=== PATIENT | male | born 1935 | race Caucasian/White ===

== ENCOUNTER 2017-06-07 13:13 | Inpatient (IN) ==
[2017-06-07 13:56] LABS: Basophils % 0.5 % (0.0-0.8); Eosinophils # 0.3 10*3/uL (0.0-0.87); Hematocrit 30.1 VOL% (42.0-52.0); Hemoglobin 9.8 GM/DL (14.0-18.0); Immature Granulocytes % 0.3 %; Immature Granulocytes Absolute 0.02 #; Lymphocytes # 1.3 10*3/uL (1.4-4.0); Lymphocytes % 19.8 % (21.2-54.2); Mean Corpuscular HGB Conc 32.6 GM/DL (32-36); Mean Corpuscular Hemoglobin 29 PG (27-34); Mean Corpuscular Volume 90.1 FL (87-102); Mean Platelet Volume 10.7 FL (9.6-12.0); Monocytes # 0.7 10*3/uL (0.11-0.8); Monocytes % 10.8 % (1.7-12.7); Neutrophils # 4.1 10*3/uL (1.4-7.4); Neutrophils % 64.6 % (38.7-73.9); Platelet Count 216 T/CUMM (130-400); Red Blood Count 3.34 MC/CUMM (3.8-5.5); Red Cell Distribution Width 15.7 % (9.3-17.3); White Blood Count 6.3 T/CUMM (4-12)
[2017-06-07 14:04] LABS: Partial Thromboplastin Time 26.4 SECS (0-40)
[2017-06-07 14:35] LABS: Albumin 3.9 G/DL (3.4-5.0); Bilirubin,Total 0.5 MG/DL (0.2-1.0); Osmolality,Calculated 302.7 MOS/KG (273-304); Potassium 3.7 MMOL/L (3.5-5.1); Total Protein 7.8 G/DL (6.4-8.3)
[2017-06-07 14:36] LABS: Troponin I Only 0.214 NG/ML (0.00-0.045)
[2017-06-07] MEDS ORDERED: ONDANSETRON 4 MG/2 ML VIAL IV PRN (15:43)
[2017-06-07] MEDS ORDERED: DOCUSATE SODIUM 100 MG CAPSULE PO PRN (15:43)
[2017-06-07] MEDS ORDERED: diphenhydrAMINE CAP 25 MG CAPSULE PO PRN (15:43)
[2017-06-07] MEDS ORDERED: guaiFENesin/DM ER 600-30 MG TABLET PO PRN (15:43)
[2017-06-07] MEDS ORDERED: ALBUTEROL 2.5 MG/3 ML NEB RESP TX PRN (15:49)
[2017-06-07] MEDS ORDERED: FUROSEMIDE 40 MG/4 ML VIAL ONE (16:29)
[2017-06-07] MEDS ORDERED: amLODIPine 10 MG TABLET ONE (16:29)
[2017-06-07] MEDS ORDERED: PANTOPRAZOLE 40 MG TABLET PO ONE (16:30)
[2017-06-07] MEDS ORDERED: cefTRIAXone 1,000 MG VIAL ONE (16:30)
[2017-06-07] MEDS ORDERED: methylPREDNISolone SOD SUC 40 MG/1 ML VIAL ONE (16:30)
[2017-06-07] MEDS: amLODIPine 10 MG TABLET PO SCH (16:35)
[2017-06-07] MEDS: PANTOPRAZOLE 40 MG TABLET PO SCH (16:35)
[2017-06-07] MEDS: FUROSEMIDE 40 MG/4 ML VIAL IV SCH (16:36)
[2017-06-07] MEDS: methylPREDNISolone SOD SUC 40 MG/1 ML VIAL IV SCH (16:39)
[2017-06-07] MEDS: SIMVASTATIN 20 MG TABLET PO SCH (17:06)
[2017-06-07] MEDS: cefTRIAXone 1,000 MG in SYRINGE 1 EACH IV SCH (17:07)
[2017-06-07] MEDS ORDERED: DEXTROSE 50% 25 GM/50 ML VIAL IV PRN (18:05)
[2017-06-07] MEDS ORDERED: GLUCAGON 1 MG VIAL IM PRN (18:05)
[2017-06-07] MEDS: ALBUTEROL/IPRATROPIUM 3 ML NEB RESP TX SCH (19:14)
[2017-06-07] MEDS: INSULIN LISPRO 100 UNIT/ML SUBCUT SCH (20:12)
[2017-06-07] MEDS: CARVEDILOL 12.5 MG TABLET PO SCH (21:26)
[2017-06-07] MEDS: ENOXAPARIN 30 MG/0.3 ML SYRINGE SUBCUT SCH (21:26)
[2017-06-07] MEDS: BUDESONIDE/FORMOTEROL 160-4.5 INHALER 6 GM INH SCH (21:29)
[2017-06-07 22:52] LABS: Troponin I Only 0.242 NG/ML (0.00-0.045)
[2017-06-07] MEDS: ACETAMINOPHEN 325 MG TABLET PO PRN (23:43)
[2017-06-08] MEDS: ALBUTEROL/IPRATROPIUM 3 ML NEB RESP TX SCH ×4 (00:32→20:45)
[2017-06-08 01:10] LABS: Basophils % 0.3 % (0.0-0.8); Eosinophils % 0.3 % (0.00-10.9); Hematocrit 27.4 VOL% (42.0-52.0); Immature Granulocytes % 1.4 %; Immature Granulocytes Absolute 0.05 #; Lymphocytes # 0.4 10*3/uL (1.4-4.0); Mean Corpuscular HGB Conc 32.8 GM/DL (32-36); Mean Corpuscular Hemoglobin 29 PG (27-34); Mean Corpuscular Volume 89.3 FL (87-102); Mean Platelet Volume 10.8 FL (9.6-12.0); Monocytes # 0.1 10*3/uL (0.11-0.8); Monocytes % 1.9 % (1.7-12.7); Neutrophils # 3.2 10*3/uL (1.4-7.4); Neutrophils % 86.1 % (38.7-73.9); Platelet Count 177 T/CUMM (130-400); Red Blood Count 3.07 MC/CUMM (3.8-5.5); Red Cell Distribution Width 15.4 % (9.3-17.3); White Blood Count 3.7 T/CUMM (4-12)
[2017-06-08 01:40] LABS: Albumin 3.6 G/DL (3.4-5.0); Bilirubin,Total 0.4 MG/DL (0.2-1.0); Calcium 8.7 MG/DL (8.5-10.1); Osmolality,Calculated 305.8 MOS/KG (273-304); Potassium 3.5 MMOL/L (3.5-5.1); Risk Ratio 3.14; Total Protein 6.9 G/DL (6.4-8.3); VLDL CHOLESTEROL 20.2 MG/DL
[2017-06-08] MEDS: FUROSEMIDE 40 MG/4 ML VIAL IV SCH ×3 (04:07→20:15)
[2017-06-08] MEDS: methylPREDNISolone SOD SUC 40 MG/1 ML VIAL IV SCH ×2 (04:15→17:20)
[2017-06-08] MEDS: ACETAMINOPHEN 325 MG TABLET PO PRN (04:24)
[2017-06-08] MEDS: amLODIPine 10 MG TABLET PO SCH (09:23)
[2017-06-08] MEDS: INSULIN LISPRO 100 UNIT/ML SUBCUT SCH ×2 (09:24→17:21)
[2017-06-08] MEDS: ASPIRIN EC 81 MG TABLET PO SCH (09:24)
[2017-06-08] MEDS: PANTOPRAZOLE 40 MG TABLET PO SCH (09:24)
[2017-06-08] MEDS: CARVEDILOL 12.5 MG TABLET PO SCH ×2 (09:24→22:09)
[2017-06-08] MEDS: SIMVASTATIN 20 MG TABLET PO SCH (09:24)
[2017-06-08] MEDS: BUDESONIDE/FORMOTEROL 160-4.5 INHALER 6 GM INH SCH ×2 (09:28→22:10)
[2017-06-08] MEDS: cefTRIAXone 1,000 MG in SYRINGE 1 EACH IV SCH (17:21)
[2017-06-08] MEDS: ENOXAPARIN 30 MG/0.3 ML SYRINGE SUBCUT SCH (22:09)
[2017-06-08] MEDS ORDERED: hydrALAZINE 20 MG/1 ML VIAL IV PRN (23:37)
[2017-06-09] MEDS: ACETAMINOPHEN 325 MG TABLET PO PRN ×2 (00:05→21:54)
[2017-06-09 01:20] LABS: Hematocrit 26.8 VOL% (42.0-52.0); Hemoglobin 8.8 GM/DL (14.0-18.0); Immature Granulocytes % 0.8 %; Immature Granulocytes Absolute 0.06 #; Lymphocytes # 0.5 10*3/uL (1.4-4.0); Lymphocytes % 5.9 % (21.2-54.2); Mean Corpuscular HGB Conc 32.8 GM/DL (32-36); Mean Corpuscular Hemoglobin 29 PG (27-34); Mean Corpuscular Volume 89.3 FL (87-102); Mean Platelet Volume 11.1 FL (9.6-12.0); Monocytes # 0.2 10*3/uL (0.11-0.8); Monocytes % 2.7 % (1.7-12.7); Neutrophils % 90.6 % (38.7-73.9); Platelet Count 203 T/CUMM (130-400); Red Cell Distribution Width 15.6 % (9.3-17.3); White Blood Count 7.8 T/CUMM (4-12)
[2017-06-09 01:59] LABS: Apearance,Urine CLEAR (Clear); Bilirubin,Urine Negative (Negative); Blood, Urine Negative (Negative); Glucose,Urine (UA) 50 mg/dL (Negative); Ketones,Urine Negative (Negative); Mucus,Urine Occasional /LPF (Occasional); Nitrite,Urine Negative (Negative); Protein,Urine Negative; Urine Color Straw (Yellow); Urine Specific Gravity 1.006 (1.001-1.035); Urine Urobilinogen < 2.0 EU/DL (0.2-1.0); WBC,Urine 1 /HPF (0-6)
[2017-06-09 02:00] LABS: Calcium 8.6 MG/DL (8.5-10.1); Potassium 3.4 MMOL/L (3.5-5.1)
[2017-06-09] MEDS: ALBUTEROL/IPRATROPIUM 3 ML NEB RESP TX SCH ×4 (02:02→19:45)
[2017-06-09 02:11] LABS: Band Neutrophils 3 % (0-10); Lymphocytes 8 % (20-55); Platelet Estimate Normal; Segmented Neutrophils 89 % (50-85); Total Cells Counted 100
[2017-06-09] MEDS: methylPREDNISolone SOD SUC 40 MG/1 ML VIAL IV SCH ×2 (05:13→17:06)
[2017-06-09] MEDS: FUROSEMIDE 40 MG/4 ML VIAL IV SCH ×2 (05:13→21:50)
[2017-06-09] MEDS: ASPIRIN EC 81 MG TABLET PO SCH (08:37)
[2017-06-09] MEDS: amLODIPine 10 MG TABLET PO SCH (08:38)
[2017-06-09] MEDS: SIMVASTATIN 20 MG TABLET PO SCH (08:38)
[2017-06-09] MEDS: CARVEDILOL 12.5 MG TABLET PO SCH ×2 (08:38→21:50)
[2017-06-09] MEDS: INSULIN LISPRO 100 UNIT/ML SUBCUT SCH ×2 (08:39→17:34)
[2017-06-09] MEDS: PANTOPRAZOLE 40 MG TABLET PO SCH (08:39)
[2017-06-09] MEDS: BUDESONIDE/FORMOTEROL 160-4.5 INHALER 6 GM INH SCH ×2 (08:39→21:50)
[2017-06-09] MEDS ORDERED: POTASSIUM CHLORIDE 20 MEQ/15 ML UDCUP PO ONE (10:18)
[2017-06-09] MEDS: DUTASTERIDE 0.5 MG CAPSULE PO SCH (17:05)
[2017-06-09] MEDS: cefTRIAXone 1,000 MG in SYRINGE 1 EACH IV SCH (17:05)
[2017-06-09] MEDS: TAMSULOSIN 0.4 MG CAPSULE PO SCH ×2 (17:05→21:50)
[2017-06-09] MEDS: ENOXAPARIN 30 MG/0.3 ML SYRINGE SUBCUT SCH (21:49)
[2017-06-10] MEDS: ALBUTEROL/IPRATROPIUM 3 ML NEB RESP TX SCH ×4 (01:16→19:25)
[2017-06-10] MEDS: methylPREDNISolone SOD SUC 40 MG/1 ML VIAL IV SCH ×2 (03:09→17:05)
[2017-06-10 06:40] LABS: Basophils % 0.1 % (0.0-0.8); Hematocrit 30.3 VOL% (42.0-52.0); Hemoglobin 10.3 GM/DL (14.0-18.0); Immature Granulocytes % 0.6 %; Immature Granulocytes Absolute 0.07 #; Lymphocytes # 0.6 10*3/uL (1.4-4.0); Lymphocytes % 5.3 % (21.2-54.2); Mean Corpuscular Hemoglobin 30 PG (27-34); Mean Corpuscular Volume 87.1 FL (87-102); Monocytes # 0.5 10*3/uL (0.11-0.8); Monocytes % 4.1 % (1.7-12.7); Neutrophils # 10.8 10*3/uL (1.4-7.4); Neutrophils % 89.9 % (38.7-73.9); Platelet Count 263 T/CUMM (130-400); Red Blood Count 3.48 MC/CUMM (3.8-5.5); Red Cell Distribution Width 15.5 % (9.3-17.3)
[2017-06-10 07:19] LABS: Calcium 8.7 MG/DL (8.5-10.1); Potassium 3.5 MMOL/L (3.5-5.1)
[2017-06-10] MEDS: INSULIN LISPRO 100 UNIT/ML SUBCUT SCH ×2 (09:28→17:05)
[2017-06-10] MEDS: amLODIPine 10 MG TABLET PO SCH (09:30)
[2017-06-10] MEDS: DUTASTERIDE 0.5 MG CAPSULE PO SCH (09:30)
[2017-06-10] MEDS: FUROSEMIDE 40 MG/4 ML VIAL IV SCH ×2 (09:30→21:53)
[2017-06-10] MEDS: TAMSULOSIN 0.4 MG CAPSULE PO SCH ×2 (09:31→21:59)
[2017-06-10] MEDS: ASPIRIN EC 81 MG TABLET PO SCH (09:31)
[2017-06-10] MEDS: CARVEDILOL 12.5 MG TABLET PO SCH ×2 (09:31→21:59)
[2017-06-10] MEDS: PANTOPRAZOLE 40 MG TABLET PO SCH (09:31)
[2017-06-10] MEDS: SIMVASTATIN 20 MG TABLET PO SCH (09:31)
[2017-06-10] MEDS ORDERED: POTASSIUM CHLORIDE 20 MEQ TABLET PO ONE (13:49)
[2017-06-10] MEDS: POLYETHYLENE GLYCOL POWDER 17 GM PACK PO SCH (17:06)
[2017-06-10] MEDS: cefTRIAXone 1,000 MG in SYRINGE 1 EACH IV SCH (17:06)
[2017-06-10] MEDS: BUDESONIDE/FORMOTEROL 160-4.5 INHALER 6 GM INH SCH ×2 (18:40→21:59)
[2017-06-10] MEDS: ENOXAPARIN 30 MG/0.3 ML SYRINGE SUBCUT SCH (21:57)
[2017-06-11] MEDS: ALBUTEROL/IPRATROPIUM 3 ML NEB RESP TX SCH ×4 (00:27→19:20)
[2017-06-11] MEDS: methylPREDNISolone SOD SUC 40 MG/1 ML VIAL IV SCH (03:36)
[2017-06-11 06:58] LABS: Calcium 8.2 MG/DL (8.5-10.1); Osmolality,Calculated 309.3 MOS/KG (273-304); Potassium 3.7 MMOL/L (3.5-5.1)
[2017-06-11] MEDS: INSULIN LISPRO 100 UNIT/ML SUBCUT SCH ×2 (09:03→17:07)
[2017-06-11] MEDS: BUDESONIDE/FORMOTEROL 160-4.5 INHALER 6 GM INH SCH ×2 (09:03→20:59)
[2017-06-11] MEDS: TAMSULOSIN 0.4 MG CAPSULE PO SCH ×2 (09:05→20:49)
[2017-06-11] MEDS: DUTASTERIDE 0.5 MG CAPSULE PO SCH (09:05)
[2017-06-11] MEDS: PANTOPRAZOLE 40 MG TABLET PO SCH (09:05)
[2017-06-11] MEDS: FUROSEMIDE 40 MG/4 ML VIAL IV SCH ×2 (09:05→20:52)
[2017-06-11] MEDS: SIMVASTATIN 20 MG TABLET PO SCH (09:05)
[2017-06-11] MEDS: POLYETHYLENE GLYCOL POWDER 17 GM PACK PO SCH ×3 (09:05→20:55)
[2017-06-11] MEDS: ASPIRIN EC 81 MG TABLET PO SCH (09:05)
[2017-06-11] MEDS: CARVEDILOL 12.5 MG TABLET PO SCH ×2 (09:05→20:49)
[2017-06-11] MEDS: amLODIPine 10 MG TABLET PO SCH (09:05)
[2017-06-11] MEDS ORDERED: MAGNESIUM CITRATE 300 ML BOTTLE PO ONE (11:15)
[2017-06-11] MEDS: DOCUSATE SODIUM 100 MG CAPSULE PO SCH ×2 (11:47→20:49)
[2017-06-11] MEDS: LACTULOSE 20 GM/30 ML UDCUP PO SCH ×2 (15:33→20:55)
[2017-06-11] MEDS: cefTRIAXone 1,000 MG in SYRINGE 1 EACH IV SCH (15:33)
[2017-06-11] MEDS: ENOXAPARIN 30 MG/0.3 ML SYRINGE SUBCUT SCH (20:50)
[2017-06-12] MEDS: ALBUTEROL/IPRATROPIUM 3 ML NEB RESP TX SCH ×4 (00:17→20:09)
[2017-06-12 06:48] LABS: Eosinophils % 0.1 % (0.00-10.9); Hemoglobin 9.8 GM/DL (14.0-18.0); Immature Granulocytes % 0.8 %; Immature Granulocytes Absolute 0.06 #; Lymphocytes # 1.5 10*3/uL (1.4-4.0); Lymphocytes % 20.3 % (21.2-54.2); Mean Corpuscular HGB Conc 32.7 GM/DL (32-36); Mean Corpuscular Hemoglobin 29 PG (27-34); Mean Corpuscular Volume 89.3 FL (87-102); Mean Platelet Volume 10.5 FL (9.6-12.0); Monocytes # 0.8 10*3/uL (0.11-0.8); Monocytes % 10.2 % (1.7-12.7); Neutrophils # 5.2 10*3/uL (1.4-7.4); Neutrophils % 68.6 % (38.7-73.9); Platelet Count 206 T/CUMM (130-400); Red Blood Count 3.36 MC/CUMM (3.8-5.5); Red Cell Distribution Width 15.2 % (9.3-17.3); White Blood Count 7.5 T/CUMM (4-12)
[2017-06-12 07:15] LABS: Calcium 8.2 MG/DL (8.5-10.1); Osmolality,Calculated 305.1 MOS/KG (273-304); Potassium 3.7 MMOL/L (3.5-5.1)
[2017-06-12] MEDS: INSULIN LISPRO 100 UNIT/ML SUBCUT SCH ×2 (08:07→16:37)
[2017-06-12] MEDS: LACTULOSE 20 GM/30 ML UDCUP PO SCH (08:08)
[2017-06-12] MEDS: POLYETHYLENE GLYCOL POWDER 17 GM PACK PO SCH ×2 (08:09→21:27)
[2017-06-12] MEDS ORDERED: methylPREDNISolone SOD SUC 40 MG/1 ML VIAL IV SCH (09:00)
[2017-06-12] MEDS: FUROSEMIDE 40 MG/4 ML VIAL IV SCH ×2 (09:45→21:19)
[2017-06-12] MEDS: amLODIPine 10 MG TABLET PO SCH (09:45)
[2017-06-12] MEDS: TAMSULOSIN 0.4 MG CAPSULE PO SCH ×2 (09:46→21:14)
[2017-06-12] MEDS: ASPIRIN EC 81 MG TABLET PO SCH (09:46)
[2017-06-12] MEDS: PANTOPRAZOLE 40 MG TABLET PO SCH (09:47)
[2017-06-12] MEDS: DOCUSATE SODIUM 100 MG CAPSULE PO SCH ×2 (09:47→21:14)
[2017-06-12] MEDS: CARVEDILOL 12.5 MG TABLET PO SCH ×2 (09:47→21:14)
[2017-06-12] MEDS: SIMVASTATIN 20 MG TABLET PO SCH (09:47)
[2017-06-12] MEDS: DUTASTERIDE 0.5 MG CAPSULE PO SCH (09:47)
[2017-06-12] MEDS: BUDESONIDE/FORMOTEROL 160-4.5 INHALER 6 GM INH SCH ×2 (09:48→21:27)
[2017-06-12] MEDS: cefTRIAXone 1,000 MG in SYRINGE 1 EACH IV SCH (16:38)
[2017-06-12] MEDS: ENOXAPARIN 30 MG/0.3 ML SYRINGE SUBCUT SCH (21:17)
[2017-06-12] MEDS: INSULIN GLARGINE 100 UNIT/ML SUBCUT SCH (21:17)
[2017-06-13] MEDS: ALBUTEROL/IPRATROPIUM 3 ML NEB RESP TX SCH ×4 (01:17→19:24)
[2017-06-13] MEDS: ACETAMINOPHEN 325 MG TABLET PO PRN (04:09)
[2017-06-13 06:38] LABS: Eosinophils % 0.5 % (0.00-10.9); Hematocrit 29.6 VOL% (42.0-52.0); Hemoglobin 9.8 GM/DL (14.0-18.0); Immature Granulocytes % 1.1 %; Immature Granulocytes Absolute 0.08 #; Lymphocytes # 1.4 10*3/uL (1.4-4.0); Lymphocytes % 18.3 % (21.2-54.2); Mean Corpuscular HGB Conc 33.1 GM/DL (32-36); Mean Corpuscular Hemoglobin 29 PG (27-34); Mean Corpuscular Volume 88.4 FL (87-102); Mean Platelet Volume 11.5 FL (9.6-12.0); Monocytes # 0.7 10*3/uL (0.11-0.8); Monocytes % 9.7 % (1.7-12.7); Neutrophils # 5.3 10*3/uL (1.4-7.4); Neutrophils % 70.4 % (38.7-73.9); Platelet Count 241 T/CUMM (130-400); Red Blood Count 3.35 MC/CUMM (3.8-5.5); White Blood Count 7.5 T/CUMM (4-12)
[2017-06-13 07:10] LABS: Calcium 8.1 MG/DL (8.5-10.1); Potassium 3.7 MMOL/L (3.5-5.1)
[2017-06-13] MEDS: INSULIN LISPRO 100 UNIT/ML SUBCUT SCH ×2 (08:11→17:02)
[2017-06-13] MEDS: FUROSEMIDE 40 MG/4 ML VIAL IV SCH ×2 (09:11→21:16)
[2017-06-13] MEDS: amLODIPine 10 MG TABLET PO SCH (09:12)
[2017-06-13] MEDS: TAMSULOSIN 0.4 MG CAPSULE PO SCH ×2 (09:12→21:18)
[2017-06-13] MEDS: DOCUSATE SODIUM 100 MG CAPSULE PO SCH ×2 (09:12→21:16)
[2017-06-13] MEDS: SIMVASTATIN 20 MG TABLET PO SCH (09:12)
[2017-06-13] MEDS: PANTOPRAZOLE 40 MG TABLET PO SCH (09:12)
[2017-06-13] MEDS: BUDESONIDE/FORMOTEROL 160-4.5 INHALER 6 GM INH SCH ×2 (09:12→21:41)
[2017-06-13] MEDS: CARVEDILOL 12.5 MG TABLET PO SCH ×2 (09:12→21:16)
[2017-06-13] MEDS: ASPIRIN EC 81 MG TABLET PO SCH (09:12)
[2017-06-13] MEDS: POLYETHYLENE GLYCOL POWDER 17 GM PACK PO SCH ×2 (09:12→21:18)
[2017-06-13] MEDS: DUTASTERIDE 0.5 MG CAPSULE PO SCH (09:12)
[2017-06-13] MEDS: predniSONE 20 MG TABLET PO SCH (09:14)
[2017-06-13] MEDS: cefTRIAXone 1,000 MG in SYRINGE 1 EACH IV SCH (17:03)
[2017-06-13] MEDS ORDERED: [UNRECOGNIZED DRUG - OTHER] PO SCH (21:00)
[2017-06-13] MEDS: INSULIN GLARGINE 100 UNIT/ML SUBCUT SCH (21:18)
[2017-06-13] MEDS: ENOXAPARIN 30 MG/0.3 ML SYRINGE SUBCUT SCH (21:52)
[2017-06-14] MEDS: ALBUTEROL/IPRATROPIUM 3 ML NEB RESP TX SCH ×3 (00:46→14:06)
[2017-06-14] MEDS: INSULIN LISPRO 100 UNIT/ML SUBCUT SCH (08:11)
[2017-06-14] MEDS: DOCUSATE SODIUM 100 MG CAPSULE PO SCH (08:40)
[2017-06-14] MEDS: DUTASTERIDE 0.5 MG CAPSULE PO SCH (08:40)
[2017-06-14] MEDS: TAMSULOSIN 0.4 MG CAPSULE PO SCH (08:40)
[2017-06-14] MEDS: predniSONE 20 MG TABLET PO SCH (08:40)
[2017-06-14] MEDS: POLYETHYLENE GLYCOL POWDER 17 GM PACK PO SCH (08:40)
[2017-06-14] MEDS: ASPIRIN EC 81 MG TABLET PO SCH (08:41)
[2017-06-14] MEDS: SIMVASTATIN 20 MG TABLET PO SCH (08:41)
[2017-06-14] MEDS: PANTOPRAZOLE 40 MG TABLET PO SCH (08:41)
[2017-06-14] MEDS: BUDESONIDE/FORMOTEROL 160-4.5 INHALER 6 GM INH SCH (08:42)
[2017-06-14] MEDS: amLODIPine 10 MG TABLET PO SCH (08:42)
[2017-06-14] MEDS: CARVEDILOL 12.5 MG TABLET PO SCH (08:42)
[2017-06-14] MEDS ORDERED: LACTULOSE 20 GM/30 ML UDCUP PO SCH (09:00)
[2017-06-14] MEDS ORDERED: FUROSEMIDE 40 MG TABLET PO SCH (09:00)
[2017-06-14 12:16] VITALS: BP 146/61
== END 2017-06-14 15:15 | disposition home or self-care (01) | DRG 291 ==
LOC: N.ED 13:13 → N.EDINP 15:27 → N.5E 18:04
PROVIDERS: ADMIT Hospitalist; ATTEND Hospitalist

== ENCOUNTER 2017-12-03 10:15 | Inpatient (IN) ==
[2017-12-03 11:22] LABS: Basophils % 0.3 % (0.0-0.8); Eosinophils # 0.1 10*3/uL (0.0-0.87); Hematocrit 26.1 VOL% (42.0-52.0); Hemoglobin 8.6 GM/DL (14.0-18.0); Immature Granulocytes % 0.4 %; Immature Granulocytes Absolute 0.03 #; Lymphocytes # 1.2 10*3/uL (1.4-4.0); Lymphocytes % 17.9 % (21.2-54.2); Mean Corpuscular Hemoglobin 30 PG (27-34); Mean Corpuscular Volume 91.3 FL (87-102); Mean Platelet Volume 10.9 FL (9.6-12.0); Monocytes # 0.9 10*3/uL (0.11-0.8); Monocytes % 13.1 % (1.7-12.7); Neutrophils # 4.7 10*3/uL (1.4-7.4); Neutrophils % 67.3 % (38.7-73.9); Platelet Count 210 T/CUMM (130-400); Red Blood Count 2.86 MC/CUMM (3.8-5.5); Red Cell Distribution Width 13.6 % (9.3-17.3); White Blood Count 6.9 T/CUMM (4-12)
[2017-12-03 11:35] LABS: PT Patient Result 10.7 SECS; Partial Thromboplastin Time 27.1 SECS (0-40)
[2017-12-03 11:40] LABS: Albumin 3.6 G/DL (3.4-5.0); Bilirubin,Total 0.5 MG/DL (0.2-1.0); CKMB % 5.4 %; Calcium 9.1 MG/DL (8.5-10.1); Osmolality,Calculated 291.3 MOS/KG (273-304); Potassium 4.5 MMOL/L (3.5-5.1); Total Protein 7.4 G/DL (6.4-8.3)
[2017-12-03 11:44] LABS: Troponin I 4.48 NG/ML (0.00-0.045)
[2017-12-03] MEDS ORDERED: ENOXAPARIN 80 MG/0.8 ML SYRINGE SUBCUT STA (12:00)
[2017-12-03] MEDS ORDERED: ONDANSETRON 4 MG/2 ML VIAL IV PRN ×2 (13:39→14:02)
[2017-12-03] MEDS ORDERED: ACETAMINOPHEN 325 MG TABLET PO PRN ×2 (13:39→14:02)
[2017-12-03] MEDS ORDERED: GLUCAGON 1 MG VIAL IM PRN (14:02)
[2017-12-03] MEDS ORDERED: ISOSORBIDE MONONITRATE 30 MG TABLET PO SCH (14:02)
[2017-12-03] MEDS ORDERED: MAGNESIUM SULF RIDER 2 GM in PREMIX 1 EACH IV PRN (14:02)
[2017-12-03] MEDS ORDERED: DEXTROSE 50% 25 GM/50 ML VIAL IV PRN (14:02)
[2017-12-03] MEDS ORDERED: MAGNESIUM SULF RIDER 4 GM in PREMIX 1 EACH IV PRN (14:02)
[2017-12-03] MEDS ORDERED: NITROGLYCERIN SL 0.4 MG TABLET SL PRN (14:02)
[2017-12-03 14:14] LABS: Apearance,Urine CLEAR (Clear); Bacteria,Urine Occasional /HPF (Few); Bilirubin,Urine Negative (Negative); Blood, Urine Negative (Negative); Glucose,Urine (UA) Negative (Negative); Ketones,Urine Negative (Negative); Mucus,Urine Occasional /LPF (Occasional); Nitrite,Urine Negative (Negative); Protein,Urine Negative; Urine Color Straw (Yellow); Urine Specific Gravity 1.004 (1.001-1.035); Urine Urobilinogen < 2.0 EU/DL (0.2-1.0); WBC,Urine <1 /HPF (0-6)
[2017-12-03] MEDS: ISOSORBIDE MONONITRATE 30 MG TABLET PO SCH (14:37)
[2017-12-03] MEDS: PANTOPRAZOLE 40 MG TABLET PO SCH (14:37)
[2017-12-03] MEDS: SODIUM CHLORIDE 0.45% 1,000 ML IV SCH (14:38)
[2017-12-03 14:57] LABS: Basophils % 0.4 % (0.0-0.8); Eosinophils # 0.1 10*3/uL (0.0-0.87); Eosinophils % 1.5 % (0.00-10.9); Hematocrit 24.6 VOL% (42.0-52.0); Hemoglobin 8.2 GM/DL (14.0-18.0); Immature Granulocytes % 0.2 %; Immature Granulocytes Absolute 0.01 #; Lymphocytes # 1.2 10*3/uL (1.4-4.0); Lymphocytes % 22.2 % (21.2-54.2); Mean Corpuscular HGB Conc 33.3 GM/DL (32-36); Mean Corpuscular Hemoglobin 30 PG (27-34); Mean Corpuscular Volume 88.8 FL (87-102); Mean Platelet Volume 10.8 FL (9.6-12.0); Monocytes # 0.7 10*3/uL (0.11-0.8); Monocytes % 12.8 % (1.7-12.7); Neutrophils # 3.5 10*3/uL (1.4-7.4); Neutrophils % 62.9 % (38.7-73.9); Platelet Count 201 T/CUMM (130-400); Red Blood Count 2.77 MC/CUMM (3.8-5.5); Red Cell Distribution Width 13.6 % (9.3-17.3); White Blood Count 5.5 T/CUMM (4-12)
[2017-12-03 15:27] LABS: CKMB % 6.3 %
[2017-12-03 15:33] LABS: Troponin I 5.74 NG/ML (0.00-0.045)
[2017-12-03 16:00] LABS: Sedimentation Rate-Westergren 109 MM/HR (0-20)
[2017-12-03 16:09] LABS: Folate 16.7 NG/ML (5.4-24.0); Vitamin B12 232 PG/ML (211-911)
[2017-12-03] MEDS ORDERED: INSULIN LISPRO 100 UNIT/ML SUBCUT SCH (16:30)
[2017-12-03] MEDS: CARVEDILOL 12.5 MG TABLET PO SCH (17:13)
[2017-12-03] MEDS: INSULIN REGULAR 100 UNIT/ML SUBCUT SCH ×2 (17:17→23:45)
[2017-12-03 18:34] LABS: Troponin I 6.32 NG/ML (0.00-0.045)
[2017-12-03] MEDS: DOCUSATE SODIUM 100 MG CAPSULE PO SCH (21:17)
[2017-12-03] MEDS: FINASTERIDE 5 MG TABLET PO SCH (21:17)
[2017-12-03] MEDS: SIMVASTATIN 20 MG TABLET PO SCH (21:17)
[2017-12-03 21:27] LABS: CKMB % 5.7 %
[2017-12-03 21:29] LABS: Troponin I 6.17 NG/ML (0.00-0.045)
[2017-12-04] MEDS: SODIUM CHLORIDE 0.45% 1,000 ML IV SCH ×2 (04:23→16:45)
[2017-12-04] MEDS: INSULIN REGULAR 100 UNIT/ML SUBCUT SCH ×4 (05:36→23:47)
[2017-12-04 06:04] LABS: Basophils % 0.4 % (0.0-0.8); Eosinophils # 0.1 10*3/uL (0.0-0.87); Eosinophils % 1.6 % (0.00-10.9); Hematocrit 23.4 VOL% (42.0-52.0); Immature Granulocytes % 0.4 %; Immature Granulocytes Absolute 0.02 #; Lymphocytes # 1.1 10*3/uL (1.4-4.0); Lymphocytes % 21.8 % (21.2-54.2); Mean Corpuscular HGB Conc 34.2 GM/DL (32-36); Mean Corpuscular Hemoglobin 30 PG (27-34); Mean Corpuscular Volume 88.6 FL (87-102); Mean Platelet Volume 11.1 FL (9.6-12.0); Monocytes # 0.7 10*3/uL (0.11-0.8); Monocytes % 13.3 % (1.7-12.7); Neutrophils # 3.2 10*3/uL (1.4-7.4); Neutrophils % 62.5 % (38.7-73.9); Platelet Count 189 T/CUMM (130-400); Red Blood Count 2.64 MC/CUMM (3.8-5.5); Red Cell Distribution Width 13.5 % (9.3-17.3); White Blood Count 5.1 T/CUMM (4-12)
[2017-12-04 06:34] LABS: Albumin 3.1 G/DL (3.4-5.0); Bilirubin,Total 0.7 MG/DL (0.2-1.0); Calcium 8.8 MG/DL (8.5-10.1); Osmolality,Calculated 291.1 MOS/KG (273-304); Potassium 4.2 MMOL/L (3.5-5.1); Risk Ratio 3.25; Total Protein 6.6 G/DL (6.4-8.3); VLDL CHOLESTEROL 28.4 MG/DL
[2017-12-04] MEDS: DOCUSATE SODIUM 100 MG CAPSULE PO SCH ×2 (08:23→20:58)
[2017-12-04] MEDS: FUROSEMIDE 40 MG TABLET PO SCH (08:23)
[2017-12-04] MEDS: ISOSORBIDE MONONITRATE 30 MG TABLET PO SCH (08:24)
[2017-12-04] MEDS: CARVEDILOL 12.5 MG TABLET PO SCH ×2 (08:24→16:29)
[2017-12-04] MEDS: amLODIPine 10 MG TABLET PO SCH (08:24)
[2017-12-04] MEDS: ASPIRIN EC 81 MG TABLET PO SCH (08:24)
[2017-12-04] MEDS: PANTOPRAZOLE 40 MG TABLET PO SCH (08:24)
[2017-12-04] MEDS ORDERED: ALBUTEROL/IPRATROPIUM 3 ML NEB RESP TX ONE (08:45)
[2017-12-04] MEDS ORDERED: PANTOPRAZOLE 40 MG TABLET PO SCH (09:00)
[2017-12-04] MEDS ORDERED: MORPHINE 4 MG/1 ML VIAL IV STA (09:07)
[2017-12-04] MEDS ORDERED: FUROSEMIDE 40 MG/4 ML VIAL ONE (09:36)
[2017-12-04] MEDS ORDERED: FUROSEMIDE 40 MG/4 ML VIAL IV STA (09:36)
[2017-12-04] MEDS ORDERED: FUROSEMIDE 40 MG/4 ML VIAL IV ONE (10:13)
[2017-12-04 10:36] LABS: Calcium 8.7 MG/DL (8.5-10.1); Osmolality,Calculated 291.3 MOS/KG (273-304); Potassium 4.3 MMOL/L (3.5-5.1)
[2017-12-04] MEDS: cefTRIAXone 500 MG in SYRINGE 1 EACH IV SCH (11:50)
[2017-12-04] MEDS ORDERED: MORPHINE 4 MG/1 ML VIAL IV PRN (20:01)
[2017-12-04] MEDS: SIMVASTATIN 20 MG TABLET PO SCH (20:58)
[2017-12-04] MEDS: FINASTERIDE 5 MG TABLET PO SCH (20:58)
[2017-12-05] MEDS: MAGNESIUM HYDROXIDE SUSP 30 ML UDCUP PO PRN (03:45)
[2017-12-05 04:26] LABS: Basophils % 0.5 % (0.0-0.8); Eosinophils # 0.2 10*3/uL (0.0-0.87); Hematocrit 25.1 VOL% (42.0-52.0); Hemoglobin 8.4 GM/DL (14.0-18.0); Immature Granulocytes % 0.5 %; Immature Granulocytes Absolute 0.03 #; Lymphocytes # 1.2 10*3/uL (1.4-4.0); Lymphocytes % 20.1 % (21.2-54.2); Mean Corpuscular HGB Conc 33.5 GM/DL (32-36); Mean Corpuscular Hemoglobin 30 PG (27-34); Mean Corpuscular Volume 88.1 FL (87-102); Mean Platelet Volume 10.5 FL (9.6-12.0); Monocytes # 0.8 10*3/uL (0.11-0.8); Monocytes % 13.4 % (1.7-12.7); Neutrophils # 3.7 10*3/uL (1.4-7.4); Neutrophils % 62.5 % (38.7-73.9); Platelet Count 193 T/CUMM (130-400); Red Blood Count 2.85 MC/CUMM (3.8-5.5); Red Cell Distribution Width 13.5 % (9.3-17.3)
[2017-12-05 04:45] LABS: Calcium 8.9 MG/DL (8.5-10.1); Osmolality,Calculated 290.4 MOS/KG (273-304); Potassium 4.4 MMOL/L (3.5-5.1)
[2017-12-05] MEDS: SODIUM CHLORIDE 0.45% 1,000 ML IV SCH (04:46)
[2017-12-05] MEDS: INSULIN REGULAR 100 UNIT/ML SUBCUT SCH ×3 (05:48→18:17)
[2017-12-05] MEDS: CARVEDILOL 12.5 MG TABLET PO SCH ×2 (08:48→18:18)
[2017-12-05] MEDS: ASPIRIN EC 81 MG TABLET PO SCH (08:49)
[2017-12-05] MEDS: FUROSEMIDE 40 MG TABLET PO SCH (08:49)
[2017-12-05] MEDS: DOCUSATE SODIUM 100 MG CAPSULE PO SCH ×2 (08:49→21:07)
[2017-12-05] MEDS: ISOSORBIDE MONONITRATE 30 MG TABLET PO SCH (08:49)
[2017-12-05] MEDS: PANTOPRAZOLE 40 MG TABLET PO SCH (08:50)
[2017-12-05] MEDS: amLODIPine 10 MG TABLET PO SCH (08:50)
[2017-12-05 10:00] LABS: Hemoglobin A1 (Alkaline) 98.3 % (96.5-98.5); Hemoglobin A2 (Alkaline) 1.7 % (1.5-3.5)
[2017-12-05] MEDS: ALBUTEROL/IPRATROPIUM 3 ML NEB RESP TX SCH ×3 (11:17→19:05)
[2017-12-05 13:59] LABS: Apearance,Urine CLEAR (Clear); Bacteria,Urine Occasional /HPF (Few); Bilirubin,Urine Negative (Negative); Blood, Urine Large mg/dL (Negative); Glucose,Urine (UA) Negative (Negative); Ketones,Urine Negative (Negative); Mucus,Urine Occasional /LPF (Occasional); Nitrite,Urine Negative (Negative); Protein,Urine 100 MG/DL; RBC,Urine 366 /HPF (0-4); Urine Color Yellow (Yellow); Urine Specific Gravity 1.008 (1.001-1.035); Urine Urobilinogen < 2.0 EU/DL (0.2-1.0); WBC,Urine 23 /HPF (0-6)
[2017-12-05] MEDS: cefTRIAXone 500 MG in SYRINGE 1 EACH IV SCH (14:02)
[2017-12-05] MEDS: FINASTERIDE 5 MG TABLET PO SCH (21:07)
[2017-12-05] MEDS: SIMVASTATIN 20 MG TABLET PO SCH (21:07)
[2017-12-06] MEDS: INSULIN REGULAR 100 UNIT/ML SUBCUT SCH ×4 (00:03→18:52)
[2017-12-06] MEDS: ALBUTEROL/IPRATROPIUM 3 ML NEB RESP TX SCH ×7 (00:21→23:11)
[2017-12-06] MEDS: MAGNESIUM HYDROXIDE SUSP 30 ML UDCUP PO PRN (03:34)
[2017-12-06 04:11] LABS: Basophils % 0.3 % (0.0-0.8); Eosinophils # 0.2 10*3/uL (0.0-0.87); Eosinophils % 3.3 % (0.00-10.9); Hematocrit 23.7 VOL% (42.0-52.0); Hemoglobin 7.7 GM/DL (14.0-18.0); Immature Granulocytes % 0.5 %; Immature Granulocytes Absolute 0.03 #; Lymphocytes # 1.3 10*3/uL (1.4-4.0); Lymphocytes % 19.9 % (21.2-54.2); Mean Corpuscular HGB Conc 32.5 GM/DL (32-36); Mean Corpuscular Hemoglobin 29 PG (27-34); Mean Corpuscular Volume 89.8 FL (87-102); Mean Platelet Volume 10.9 FL (9.6-12.0); Monocytes # 0.8 10*3/uL (0.11-0.8); Monocytes % 11.6 % (1.7-12.7); Neutrophils # 4.2 10*3/uL (1.4-7.4); Neutrophils % 64.4 % (38.7-73.9); Platelet Count 212 T/CUMM (130-400); Red Blood Count 2.64 MC/CUMM (3.8-5.5); Red Cell Distribution Width 13.5 % (9.3-17.3); White Blood Count 6.6 T/CUMM (4-12)
[2017-12-06 04:41] LABS: Calcium 8.7 MG/DL (8.5-10.1); Potassium 4.4 MMOL/L (3.5-5.1)
[2017-12-06] MEDS: CARVEDILOL 12.5 MG TABLET PO SCH ×2 (09:39→18:51)
[2017-12-06] MEDS: ASPIRIN EC 81 MG TABLET PO SCH (09:40)
[2017-12-06] MEDS: amLODIPine 10 MG TABLET PO SCH (09:40)
[2017-12-06] MEDS: DOCUSATE SODIUM 100 MG CAPSULE PO SCH ×2 (09:40→21:52)
[2017-12-06] MEDS: ISOSORBIDE MONONITRATE 30 MG TABLET PO SCH (09:41)
[2017-12-06] MEDS: PANTOPRAZOLE 40 MG TABLET PO SCH (09:41)
[2017-12-06] MEDS ORDERED: BISACODYL 10 MG SUPP RECTAL PRN (11:17)
[2017-12-06] MEDS: cefTRIAXone 500 MG in SYRINGE 1 EACH IV SCH (12:44)
[2017-12-06 14:12] LABS: Hematocrit 25.2 VOL% (42.0-52.0); Hemoglobin 8.3 GM/DL (14.0-18.0)
[2017-12-06] MEDS: FINASTERIDE 5 MG TABLET PO SCH (21:52)
[2017-12-06] MEDS: SIMVASTATIN 20 MG TABLET PO SCH (21:52)
[2017-12-07] MEDS: INSULIN REGULAR 100 UNIT/ML SUBCUT SCH ×4 (00:01→18:14)
[2017-12-07] MEDS: ALBUTEROL/IPRATROPIUM 3 ML NEB RESP TX SCH ×5 (03:10→19:35)
[2017-12-07 04:56] LABS: Basophils % 0.3 % (0.0-0.8); Eosinophils # 0.3 10*3/uL (0.0-0.87); Eosinophils % 4.5 % (0.00-10.9); Hematocrit 24.6 VOL% (42.0-52.0); Immature Granulocytes % 0.6 %; Immature Granulocytes Absolute 0.04 #; Lymphocytes # 1.4 10*3/uL (1.4-4.0); Lymphocytes % 23.3 % (21.2-54.2); Mean Corpuscular HGB Conc 32.5 GM/DL (32-36); Mean Corpuscular Hemoglobin 30 PG (27-34); Mean Corpuscular Volume 91.1 FL (87-102); Mean Platelet Volume 10.4 FL (9.6-12.0); Monocytes # 0.7 10*3/uL (0.11-0.8); Monocytes % 11.3 % (1.7-12.7); Neutrophils # 3.7 10*3/uL (1.4-7.4); Platelet Count 221 T/CUMM (130-400); Red Cell Distribution Width 13.2 % (9.3-17.3); White Blood Count 6.2 T/CUMM (4-12)
[2017-12-07 05:25] LABS: Calcium 9.1 MG/DL (8.5-10.1); Osmolality,Calculated 300.1 MOS/KG (273-304); Potassium 4.5 MMOL/L (3.5-5.1)
[2017-12-07] MEDS: ISOSORBIDE MONONITRATE 30 MG TABLET PO SCH (08:36)
[2017-12-07] MEDS: PANTOPRAZOLE 40 MG TABLET PO SCH (08:36)
[2017-12-07] MEDS: ASPIRIN EC 81 MG TABLET PO SCH (08:36)
[2017-12-07] MEDS: CARVEDILOL 12.5 MG TABLET PO SCH ×2 (08:36→17:03)
[2017-12-07] MEDS: amLODIPine 10 MG TABLET PO SCH (08:36)
[2017-12-07] MEDS: DOCUSATE SODIUM 100 MG CAPSULE PO SCH ×2 (08:36→21:21)
[2017-12-07] MEDS ORDERED: FUROSEMIDE 40 MG/4 ML VIAL IV ONE (08:55)
[2017-12-07] MEDS ORDERED: SODIUM CHLORIDE 0.9% 1,000 ML IV PRN (08:55)
[2017-12-07] MEDS: cefTRIAXone 500 MG in SYRINGE 1 EACH IV SCH (15:00)
[2017-12-07] MEDS ORDERED: FUROSEMIDE 40 MG/4 ML VIAL ONE (15:41)
[2017-12-07] MEDS: FINASTERIDE 5 MG TABLET PO SCH (21:21)
[2017-12-07] MEDS: SIMVASTATIN 20 MG TABLET PO SCH (21:21)
[2017-12-08] MEDS: ALBUTEROL/IPRATROPIUM 3 ML NEB RESP TX SCH ×7 (00:40→23:26)
[2017-12-08] MEDS: INSULIN REGULAR 100 UNIT/ML SUBCUT SCH ×4 (01:26→17:31)
[2017-12-08 06:03] LABS: Basophils % 0.4 % (0.0-0.8); Eosinophils # 0.3 10*3/uL (0.0-0.87); Eosinophils % 4.9 % (0.00-10.9); Hematocrit 34.7 VOL% (42.0-52.0); Immature Granulocytes % 0.6 %; Immature Granulocytes Absolute 0.04 #; Lymphocytes # 1.5 10*3/uL (1.4-4.0); Lymphocytes % 21.4 % (21.2-54.2); Mean Corpuscular Hemoglobin 30 PG (27-34); Mean Corpuscular Volume 87.8 FL (87-102); Mean Platelet Volume 10.1 FL (9.6-12.0); Monocytes # 0.7 10*3/uL (0.11-0.8); Monocytes % 10.8 % (1.7-12.7); Neutrophils # 4.2 10*3/uL (1.4-7.4); Neutrophils % 61.9 % (38.7-73.9); Platelet Count 264 T/CUMM (130-400); Red Cell Distribution Width 13.3 % (9.3-17.3); White Blood Count 6.8 T/CUMM (4-12)
[2017-12-08 06:06] LABS: Red Blood Count 3.95 MC/CUMM (3.8-5.5)
[2017-12-08 06:07] LABS: Hemoglobin 11.8 GM/DL (14.0-18.0)
[2017-12-08 06:20] LABS: Calcium 9.6 MG/DL (8.5-10.1)
[2017-12-08 06:21] LABS: Osmolality,Calculated 304.8 MOS/KG (273-304); Potassium 4.3 MMOL/L (3.5-5.1)
[2017-12-08] MEDS: PANTOPRAZOLE 40 MG TABLET PO SCH (08:48)
[2017-12-08] MEDS: DOCUSATE SODIUM 100 MG CAPSULE PO SCH ×2 (08:49→21:02)
[2017-12-08] MEDS: amLODIPine 10 MG TABLET PO SCH (08:49)
[2017-12-08] MEDS: ISOSORBIDE MONONITRATE 30 MG TABLET PO SCH (08:49)
[2017-12-08] MEDS: CARVEDILOL 12.5 MG TABLET PO SCH ×2 (08:49→16:42)
[2017-12-08] MEDS: ASPIRIN EC 81 MG TABLET PO SCH (08:49)
[2017-12-08] MEDS: cefTRIAXone 500 MG in SYRINGE 1 EACH IV SCH (13:02)
[2017-12-08] MEDS: SIMVASTATIN 20 MG TABLET PO SCH (21:02)
[2017-12-08] MEDS: FINASTERIDE 5 MG TABLET PO SCH (21:02)
[2017-12-09] MEDS: INSULIN REGULAR 100 UNIT/ML SUBCUT SCH ×2 (00:14→05:21)
[2017-12-09] MEDS: ALBUTEROL/IPRATROPIUM 3 ML NEB RESP TX SCH ×2 (03:09→08:03)
[2017-12-09 03:31] LABS: Basophils % 0.4 % (0.0-0.8); Eosinophils # 0.3 10*3/uL (0.0-0.87); Eosinophils % 4.3 % (0.00-10.9); Hematocrit 33.7 VOL% (42.0-52.0); Hemoglobin 11.2 GM/DL (14.0-18.0); Immature Granulocytes % 0.8 %; Immature Granulocytes Absolute 0.06 #; Lymphocytes % 26.6 % (21.2-54.2); Mean Corpuscular HGB Conc 33.2 GM/DL (32-36); Mean Corpuscular Hemoglobin 30 PG (27-34); Mean Corpuscular Volume 89.6 FL (87-102); Mean Platelet Volume 9.8 FL (9.6-12.0); Monocytes # 0.9 10*3/uL (0.11-0.8); Monocytes % 12.6 % (1.7-12.7); Neutrophils # 4.1 10*3/uL (1.4-7.4); Neutrophils % 55.3 % (38.7-73.9); Platelet Count 267 T/CUMM (130-400); Red Blood Count 3.76 MC/CUMM (3.8-5.5); Red Cell Distribution Width 13.4 % (9.3-17.3); White Blood Count 7.4 T/CUMM (4-12)
[2017-12-09 03:46] LABS: Osmolality,Calculated 304.1 MOS/KG (273-304); Potassium 4.4 MMOL/L (3.5-5.1)
[2017-12-09 08:47] VITALS: BP 136/63
[2017-12-09] MEDS: PANTOPRAZOLE 40 MG TABLET PO SCH (10:17)
[2017-12-09] MEDS: amLODIPine 10 MG TABLET PO SCH (10:17)
[2017-12-09] MEDS: ASPIRIN EC 81 MG TABLET PO SCH (10:17)
[2017-12-09] MEDS: DOCUSATE SODIUM 100 MG CAPSULE PO SCH (10:17)
[2017-12-09] MEDS: CARVEDILOL 12.5 MG TABLET PO SCH (10:17)
[2017-12-09] MEDS: ISOSORBIDE MONONITRATE 30 MG TABLET PO SCH (10:17)
== END 2017-12-09 11:16 | disposition home health service (06) | DRG 280 ==
LOC: N.ED 10:15 → N.EDINP 12:07 → N.CC 12:48 → N.TELEN 12-08 00:38
PROVIDERS: ADMIT Family Medicine; ATTEND Family Medicine

== ENCOUNTER 2018-02-10 22:22 | Inpatient (IN) ==
[2018-02-10] MEDS ORDERED: NITROGLYCERIN 2% OINT 1 INCH/GM PACK TOP STA (23:09)
[2018-02-10] MEDS ORDERED: ENOXAPARIN 30 MG/0.3 ML SYRINGE SUBCUT STA (23:41)
[2018-02-11] MEDS ORDERED: NITROGLYCERIN SL 0.4 MG TABLET SL PRN ×2 (04:10→09:39)
[2018-02-11] MEDS ORDERED: MORPHINE 4 MG/1 ML VIAL IV PRN (04:16)
[2018-02-11] MEDS: MORPHINE 4 MG/1 ML VIAL IV PRN (04:29)
[2018-02-11 05:16] LABS: Basophils % 0.4 % (0.0-0.8); Eosinophils # 0.1 10*3/uL (0.0-0.87); Eosinophils % 1.2 % (0.00-10.9); Hematocrit 29.3 VOL% (42.0-52.0); Immature Granulocytes % 0.4 %; Immature Granulocytes Absolute 0.03 #; Lymphocytes # 1.5 10*3/uL (1.4-4.0); Lymphocytes % 20.3 % (21.2-54.2); Mean Corpuscular HGB Conc 30.7 GM/DL (32-36); Mean Corpuscular Hemoglobin 29 PG (27-34); Mean Corpuscular Volume 93.6 FL (87-102); Mean Platelet Volume 10.9 FL (9.6-12.0); Monocytes # 0.8 10*3/uL (0.11-0.8); Monocytes % 11.2 % (1.7-12.7); Neutrophils # 4.9 10*3/uL (1.4-7.4); Neutrophils % 66.5 % (38.7-73.9); Platelet Count 205 T/CUMM (130-400); Red Blood Count 3.13 MC/CUMM (3.8-5.5); Red Cell Distribution Width 14.3 % (9.3-17.3); White Blood Count 7.4 T/CUMM (4-12)
[2018-02-11] MEDS: NITROGLYCERIN 2% OINT 1 INCH/GM PACK TOP SCH ×3 (05:43→18:07)
[2018-02-11 06:08] LABS: Albumin 3.3 G/DL (3.4-5.0); Bilirubin,Total 0.6 MG/DL (0.2-1.0); Calcium 8.6 MG/DL (8.5-10.1); Osmolality,Calculated 304.4 MOS/KG (273-304); Potassium 4.3 MMOL/L (3.5-5.1); Total Protein 6.9 G/DL (6.4-8.3)
[2018-02-11] MEDS ORDERED: FUROSEMIDE 20 MG/2 ML VIAL IV ONE (10:39)
[2018-02-11] MEDS: amLODIPine 10 MG TABLET PO SCH (11:10)
[2018-02-11] MEDS: ISOSORBIDE MONONITRATE 30 MG TABLET PO SCH (11:13)
[2018-02-11] MEDS: CARVEDILOL 12.5 MG TABLET PO SCH ×2 (11:13→20:58)
[2018-02-11] MEDS: FUROSEMIDE 40 MG TABLET PO SCH (11:25)
[2018-02-11] MEDS: INSULIN LISPRO 100 UNIT/ML SUBCUT SCH ×3 (11:44→20:57)
[2018-02-11 12:02] LABS: Apearance,Urine CLOUDY (Clear); Bacteria,Urine Few /HPF (Few); Bilirubin,Urine Negative (Negative); Blood, Urine Large mg/dL (Negative); Glucose,Urine (UA) Negative (Negative); Ketones,Urine Negative (Negative); Mucus,Urine Occasional /LPF (Occasional); Nitrite,Urine Negative (Negative); Protein,Urine 30 MG/DL; RBC,Urine 206 /HPF (0-4); Squamous Epithelial Cell,Urine Occasional /HPF (0-10); Urine Color Yellow (Yellow); Urine Urobilinogen < 2.0 EU/DL (0.2-1.0); WBC,Urine 72 /HPF (0-6)
[2018-02-11] MEDS ORDERED: MAGNESIUM HYDROXIDE SUSP 30 ML UDCUP PO ONE (14:28)
[2018-02-11] MEDS ORDERED: ASPIRIN CHEW 81 MG TABLET PO ONE (14:40)
[2018-02-11] MEDS: RANOLAZINE 500 MG TABLET PO SCH ×2 (15:01→20:58)
[2018-02-11] MEDS: SIMVASTATIN 20 MG TABLET PO SCH (20:58)
[2018-02-11] MEDS: TAMSULOSIN 0.4 MG CAPSULE PO SCH (20:58)
[2018-02-11] MEDS: ENOXAPARIN 30 MG/0.3 ML SYRINGE SUBCUT SCH (20:58)
[2018-02-11] MEDS: FINASTERIDE 5 MG TABLET PO SCH (20:58)
[2018-02-12] MEDS: NITROGLYCERIN 2% OINT 1 INCH/GM PACK TOP SCH ×4 (00:37→17:50)
[2018-02-12 05:09] LABS: Basophils % 0.4 % (0.0-0.8); Eosinophils # 0.2 10*3/uL (0.0-0.87); Eosinophils % 3.3 % (0.00-10.9); Hematocrit 29.2 VOL% (42.0-52.0); Hemoglobin 9.1 GM/DL (14.0-18.0); Immature Granulocytes % 0.4 %; Immature Granulocytes Absolute 0.03 #; Lymphocytes # 1.5 10*3/uL (1.4-4.0); Lymphocytes % 22.8 % (21.2-54.2); Mean Corpuscular HGB Conc 31.2 GM/DL (32-36); Mean Corpuscular Hemoglobin 29 PG (27-34); Mean Corpuscular Volume 93.6 FL (87-102); Mean Platelet Volume 10.8 FL (9.6-12.0); Monocytes # 0.8 10*3/uL (0.11-0.8); Monocytes % 12.1 % (1.7-12.7); Neutrophils # 4.1 10*3/uL (1.4-7.4); Platelet Count 181 T/CUMM (130-400); Red Blood Count 3.12 MC/CUMM (3.8-5.5); Red Cell Distribution Width 14.1 % (9.3-17.3); White Blood Count 6.8 T/CUMM (4-12)
[2018-02-12 05:36] LABS: Albumin 3.3 G/DL (3.4-5.0); Bilirubin,Total 0.7 MG/DL (0.2-1.0); Calcium 8.7 MG/DL (8.5-10.1); Free T4 (Free Thyroxine) 0.92 NG/DL (0.76-1.46); Osmolality,Calculated 295.1 MOS/KG (273-304); Potassium 4.8 MMOL/L (3.5-5.1); Risk Ratio 2.73; Thyroid Stimulating Hormone 4.13 uIU/ml (0.358-3.74); Total Protein 7.2 G/DL (6.4-8.3)
[2018-02-12] MEDS: INSULIN LISPRO 100 UNIT/ML SUBCUT SCH ×4 (07:35→20:37)
[2018-02-12] MEDS: ISOSORBIDE MONONITRATE 30 MG TABLET PO SCH (08:39)
[2018-02-12] MEDS: ASPIRIN CHEW 81 MG TABLET PO SCH (08:39)
[2018-02-12] MEDS: CARVEDILOL 12.5 MG TABLET PO SCH ×2 (08:39→20:14)
[2018-02-12] MEDS: TAMSULOSIN 0.4 MG CAPSULE PO SCH ×2 (08:39→20:14)
[2018-02-12] MEDS: FUROSEMIDE 40 MG TABLET PO SCH (08:39)
[2018-02-12] MEDS: RANOLAZINE 500 MG TABLET PO SCH ×2 (08:40→20:14)
[2018-02-12] MEDS: amLODIPine 10 MG TABLET PO SCH (08:40)
[2018-02-12] MEDS ORDERED: BISACODYL 5 MG TABLET PO ONE (10:55)
[2018-02-12] MEDS ORDERED: BISACODYL 5 MG TABLET PO PRN (14:01)
[2018-02-12] MEDS: ENOXAPARIN 30 MG/0.3 ML SYRINGE SUBCUT SCH (20:13)
[2018-02-12] MEDS: SIMVASTATIN 20 MG TABLET PO SCH (20:14)
[2018-02-12] MEDS: FINASTERIDE 5 MG TABLET PO SCH (20:14)
[2018-02-13] MEDS: NITROGLYCERIN 2% OINT 1 INCH/GM PACK TOP SCH ×5 (00:19→23:23)
[2018-02-13] MEDS: MORPHINE 4 MG/1 ML VIAL IV PRN (00:43)
[2018-02-13 04:44] LABS: Basophils % 0.4 % (0.0-0.8); Eosinophils # 0.3 10*3/uL (0.0-0.87); Eosinophils % 3.8 % (0.00-10.9); Hematocrit 29.9 VOL% (42.0-52.0); Hemoglobin 9.4 GM/DL (14.0-18.0); Immature Granulocytes % 0.7 %; Immature Granulocytes Absolute 0.05 #; Lymphocytes # 1.4 10*3/uL (1.4-4.0); Lymphocytes % 19.9 % (21.2-54.2); Mean Corpuscular HGB Conc 31.4 GM/DL (32-36); Mean Corpuscular Hemoglobin 29 PG (27-34); Mean Corpuscular Volume 92.3 FL (87-102); Mean Platelet Volume 10.9 FL (9.6-12.0); Monocytes # 0.9 10*3/uL (0.11-0.8); Monocytes % 12.7 % (1.7-12.7); Neutrophils # 4.3 10*3/uL (1.4-7.4); Neutrophils % 62.5 % (38.7-73.9); Platelet Count 187 T/CUMM (130-400); Red Blood Count 3.24 MC/CUMM (3.8-5.5); Red Cell Distribution Width 13.8 % (9.3-17.3); White Blood Count 6.8 T/CUMM (4-12)
[2018-02-13] MEDS: FUROSEMIDE 40 MG TABLET PO SCH (10:09)
[2018-02-13] MEDS: RANOLAZINE 500 MG TABLET PO SCH ×2 (10:09→21:13)
[2018-02-13] MEDS: ASPIRIN CHEW 81 MG TABLET PO SCH (10:10)
[2018-02-13] MEDS: CARVEDILOL 12.5 MG TABLET PO SCH ×2 (10:10→21:13)
[2018-02-13] MEDS: TAMSULOSIN 0.4 MG CAPSULE PO SCH ×2 (10:10→21:13)
[2018-02-13] MEDS: ISOSORBIDE MONONITRATE 30 MG TABLET PO SCH (10:11)
[2018-02-13] MEDS: amLODIPine 10 MG TABLET PO SCH (10:11)
[2018-02-13] MEDS: INSULIN LISPRO 100 UNIT/ML SUBCUT SCH ×4 (10:13→21:14)
[2018-02-13] MEDS: FINASTERIDE 5 MG TABLET PO SCH (21:13)
[2018-02-13] MEDS: SIMVASTATIN 20 MG TABLET PO SCH (21:13)
[2018-02-13] MEDS: ENOXAPARIN 30 MG/0.3 ML SYRINGE SUBCUT SCH (21:13)
[2018-02-14] MEDS: NITROGLYCERIN 2% OINT 1 INCH/GM PACK TOP SCH ×2 (05:11→12:47)
[2018-02-14 05:49] LABS: Basophils % 0.5 % (0.0-0.8); Eosinophils # 0.3 10*3/uL (0.0-0.87); Eosinophils % 4.6 % (0.00-10.9); Hematocrit 29.2 VOL% (42.0-52.0); Hemoglobin 9.2 GM/DL (14.0-18.0); Immature Granulocytes % 0.3 %; Immature Granulocytes Absolute 0.02 #; Lymphocytes # 1.4 10*3/uL (1.4-4.0); Lymphocytes % 23.4 % (21.2-54.2); Mean Corpuscular HGB Conc 31.5 GM/DL (32-36); Mean Corpuscular Hemoglobin 29 PG (27-34); Mean Corpuscular Volume 91.5 FL (87-102); Monocytes # 0.8 10*3/uL (0.11-0.8); Monocytes % 13.7 % (1.7-12.7); Neutrophils # 3.4 10*3/uL (1.4-7.4); Neutrophils % 57.5 % (38.7-73.9); Platelet Count 199 T/CUMM (130-400); Red Blood Count 3.19 MC/CUMM (3.8-5.5); Red Cell Distribution Width 13.6 % (9.3-17.3); White Blood Count 5.9 T/CUMM (4-12)
[2018-02-14 06:10] LABS: Calcium 9.1 MG/DL (8.5-10.1); Osmolality,Calculated 300.1 MOS/KG (273-304); Potassium 4.8 MMOL/L (3.5-5.1)
[2018-02-14] MEDS: ASPIRIN CHEW 81 MG TABLET PO SCH (08:53)
[2018-02-14] MEDS: RANOLAZINE 500 MG TABLET PO SCH (08:54)
[2018-02-14] MEDS: amLODIPine 10 MG TABLET PO SCH (08:54)
[2018-02-14] MEDS: INSULIN LISPRO 100 UNIT/ML SUBCUT SCH ×2 (08:54→12:47)
[2018-02-14] MEDS: TAMSULOSIN 0.4 MG CAPSULE PO SCH (08:54)
[2018-02-14] MEDS: CARVEDILOL 12.5 MG TABLET PO SCH (08:54)
[2018-02-14] MEDS: FUROSEMIDE 40 MG TABLET PO SCH (08:54)
[2018-02-14] MEDS: ISOSORBIDE MONONITRATE 30 MG TABLET PO SCH (08:54)
[2018-02-14 12:01] VITALS: BP 129/57
== END 2018-02-14 16:31 | disposition home health service (06) | DRG 280 ==
LOC: EDBD → EDUNIT# → N.ED 22:22 → N.EDINP 23:03 → N.ICU 23:51 → N.TELES 02-12 12:22
PROVIDERS: ADMIT Family Medicine; ATTEND Family Medicine

== ENCOUNTER 2018-09-04 02:16 | Inpatient (IN) ==
[2018-09-04] MEDS ORDERED: hydrALAZINE 20 MG/1 ML VIAL IV STA (02:57)
[2018-09-04] MEDS ORDERED: ONDANSETRON 4 MG/2 ML VIAL IV PRN (06:59)
[2018-09-04] MEDS ORDERED: ACETAMINOPHEN 325 MG TABLET PO PRN (06:59)
[2018-09-04] MEDS ORDERED: NITROGLYCERIN SL 0.4 MG TABLET SL PRN (07:04)
[2018-09-04] MEDS ORDERED: DEXTROSE 50% 25 GM/50 ML VIAL IV PRN (07:30)
[2018-09-04] MEDS ORDERED: GLUCAGON 1 MG VIAL IM PRN (07:30)
[2018-09-04] MEDS ORDERED: ENOXAPARIN 30 MG/0.3 ML SYRINGE SUBCUT SCH (07:30)
[2018-09-04] MEDS ORDERED: RANOLAZINE 500 MG TABLET PO SCH (09:00)
[2018-09-04] MEDS ORDERED: CARVEDILOL 12.5 MG TABLET PO SCH (09:00)
[2018-09-04] MEDS ORDERED: TAMSULOSIN 0.4 MG CAPSULE PO SCH (09:00)
[2018-09-04] MEDS ORDERED: PANTOPRAZOLE 40 MG TABLET PO SCH (09:00)
[2018-09-04] MEDS ORDERED: ISOSORBIDE MONONITRATE 30 MG TABLET PO SCH (09:00)
[2018-09-04] MEDS ORDERED: ASPIRIN CHEW 81 MG TABLET PO SCH (09:00)
[2018-09-04] MEDS ORDERED: FUROSEMIDE 40 MG TABLET PO SCH (09:00)
[2018-09-04 09:09] LABS: Apearance,Urine Slightly Hazy (Clear); Bacteria,Urine Many /HPF (Few); Bilirubin,Urine Negative (Negative); Blood, Urine Small mg/dL (Negative); Glucose,Urine (UA) Negative (Negative); Ketones,Urine Negative (Negative); Mucus,Urine Occasional /LPF (Occasional); Nitrite,Urine Negative (Negative); Protein,Urine Negative; RBC,Urine 7 /HPF (0-4); Squamous Epithelial Cell,Urine Occasional /HPF (0-10); Urine Color Yellow (Yellow); Urine Specific Gravity 1.012 (1.001-1.035); Urine Urobilinogen < 2.0 EU/DL (0.2-1.0); WBC,Urine 48 /HPF (0-6)
[2018-09-04] MEDS ORDERED: GABAPENTIN 100 MG CAPSULE PO SCH (11:09)
[2018-09-04] MEDS ORDERED: ACETAMINOPHEN 325 MG TABLET PO SCH (11:10)
[2018-09-04] MEDS ORDERED: PSYLLIUM POWDER 3.7 GM/PACK PO SCH (11:11)
[2018-09-04] MEDS ORDERED: INSULIN LISPRO 100 UNIT/ML SUBCUT SCH (12:00)
[2018-09-04 12:04] VITALS: BP 149/68
[2018-09-04] MEDS ORDERED: SIMVASTATIN 20 MG TABLET PO SCH (21:00)
[2018-09-04] MEDS ORDERED: FINASTERIDE 5 MG TABLET PO SCH (21:00)
[2018-09-04] MEDS ORDERED: SERTRALINE 25 MG TABLET PO SCH (21:00)
== END 2018-09-04 16:22 | disposition hospice, home (50) | DRG 292 ==
LOC: EDUNIT# → EDBD → N.ED 02:16 → N.EDINP 07:01 → N.TELEN 09:28
PROVIDERS: ADMIT Internal Medicine; ATTEND Internal Medicine